=== PATIENT | female | born 1970 | race Two or more races ===

== ENCOUNTER → 2024-02-10 | Outpatient (CLI) | payer BC, SELFPAY ==
[2024-02-11 09:42] LABS: BVAG Candida Negative (Negative); Bacterial Vaginosis Markers Negative (Negative); Candida glabrata Negative (Negative); Candida krusei PCR Negative (Negative); Trichomonas Negative (Negative)
== END | disposition home or self-care (01) ==
LOC: SLDO 14:59
PROVIDERS: Referring Provider Specialist; Visit Provider Specialist
DX: B37.89 Other sites of candidiasis (principal); N76.0 Acute vaginitis; A59.01 Trichomonal vulvovaginitis; R31.9 Hematuria, unspecified
CPT/HCPCS: 81514; 87086

== ENCOUNTER → 2024-02-10 | Outpatient (CLI) | payer BC, SELFPAY ==
[2024-02-10 14:11] LABS: Follicle Stimulating Hormone 58.54 mIU/mL (See Note)
[2024-02-10 14:12] LABS: Alanine Aminotransferase 14 U/L (10-49); Albumin, Serum 4.4 gm/dL (3.5-5.0); Albumin/Globulin Ratio 1.8 (1.2-2.2); Alkaline Phosphatase 110 U/L (46-116); Anion Gap 7 (7-16); Aspartate Amino Transferase 14 U/L (0-34); BUN/Creatinine Ratio 27 Ratio (12-20); Bilirubin,Total 0.3 mg/dL (0.3-1.2); Blood Urea Nitrogen 16 mg/dL (9-23); Calcium 9.3 mg/dL (8.3-10.6); Calcium (Corrected) 9.3 mg/dL (8.5-10.1); Carbon Dioxide 26.6 mMol/L (20.0-31.0); Chloride 108 mMol/L (98-107); Creatinine (Component) 0.6 mg/dL (0.6-1.3); Free T4 (Free Thyroxine) 1.14 ng/dL (0.89-1.76); Globulin 2.4 gm/dL (2.3-3.5); Glucose 101 mg/dL (74-106); Osmolality,Calculated 284 (275-295); Potassium 3.9 mMol/L (3.4-5.1); Sodium 142 mMol/L (136-145); Thyroid Stimulating Hormone 1.88 uIU/mL (0.55-4.78); Total Protein 6.8 gm/dL (5.7-8.2); eGFR > 60 See Note
[2024-02-19 06:25] LABS: DHEA Sulfate* 114 mcg/dL (8-188); Estrogen, Total, Serum* 116 pg/mL; Luteinizing Hormone* 38.8 mIU/mL; Progesterone,LC/MS* <0.1 ng/mL; Prolactin* 4.9 ng/mL; SHBG 19 nmol/L (17-124)
[2024-02-19 06:26] LABS: Albumin 3.9 g/dL (3.6-5.1); Testosterone, Bioavailable 3.9 ng/dL (0.5-8.5); Testosterone, Free 2.2 pg/mL (0.2-5.0); Testosterone,Total 12 ng/dL (2-45)
== END | disposition home or self-care (01) ==
PROVIDERS: PCP Internal Medicine; Referring Provider Physician Assistant Medical; Visit Provider Physician Assistant Medical
DX: N95.1 Menopausal and female climacteric states (principal)
CPT/HCPCS: 36415; 80053; 82040; 82627; 82672; 83001; 83002; 84144; 84146; 84270; 84403; 84439; 84443

== ENCOUNTER 2024-06-17 12:15 | Day surgery (SDC) | payer BC, SELFPAY ==
[2024-06-16 13:15] VITALS: BMI 37.4
[2024-06-17] VITALS (12 sets, daily range): BP systolic 101–124; BP diastolic 62–78; PULSE 53–64; RESP 13–19; TEMP 36.2–36.4; O2SAT 99–100; BMI 39.1
[2024-06-17] MEDS: RINGERS LACTATED 500 ML 500 ML 20 ML IV (13:49)
[2024-06-17] MEDS: fentaNYL CIT INJ 50 mCg/ML AMP 2ML (ASD USE ONLY) IV (13:59)
[2024-06-17] MEDS: DiphenhydrAMINE INJ 50 MG/ML VIAL 25 MG IV (14:05)
[2024-06-17] MEDS: MIDAZOLAM INJ 1 MG/ML VIAL 2 ML (ASD USE ONLY) 2 MG IV (14:10)
== END 2024-06-17 15:05 | disposition home or self-care (01) ==
PROVIDERS: PCP Family Medicine; Referring Provider Surgery; Visit Provider Surgery
PROC: 0DBE8ZX Excision of Large Intestine, Via Natural or Artificial Opening Endoscopic, Diagnostic (ICD-10-PCS; CPT 45380; principal; 2024-06-17 13:30)
DX: Z12.11 Encounter for screening for malignant neoplasm of colon (principal)
CPT/HCPCS: 45378; 81025; J1200; J2250; J3010; J7120